=== PATIENT | male | born 1990 | race American Indian/Alaskan Native ===

== ENCOUNTER 2021-02-13 10:12 | Emergency (ER) | payer OTHER ==
[2021-02-13 11:05] VITALS: BP 161/117
--- NOTE | 2021-02-13 13:35 | Emergency Department Report ---
ED Male HPI - General Chief complaint: Urogenital-Male Stated complaint: GROIN PAIN Time Seen by Provider: 02/13/21 11:14 Source: patient Mode of arrival: Ambulatory Limitations: No Limitations - History of Present Illness Initial comments: This is a 30-year-old male with a history of HIV not on medication recently moved here looking for an infectious disease doctor presents ED complaining of penile lesions for about a year and 9 yellowish discharge most not resolving with antifungal cream. Patient states that he is not sexually active so is not worried about a STD. Patient states he is uncircumcised and has a lot of pus drainage from around the penis head. And red burning type lesions all around the penis going down his testicles. Patient denies any testicular pain, injury, swelling, trauma. He denies fever/chills/nausea vomiting. MD Complaint: penile discharge - Related Data Previous Rx's Medication Instructions Recorded Last Taken Type Acyclovir [Zovirax Tab] 800 mg PO Q8H #21 tab 02/13/21 Unknown Rx Acyclovir [Zovirax] 1 applic TP TID #1 oint...g. 02/13/21 Unknown Rx Clindamycin [Clindamycin CAP] 300 mg PO Q8H #15 cap 02/13/21 Unknown Rx Hydrocortisone 1% [Hydrocortisone 1 applicatio TP TID #1 tube 02/13/21 Unknown Rx 1% CREAM] Ibuprofen [Motrin 800 MG tab] 800 mg PO Q8HR PRN #30 tablet 02/13/21 Unknown Rx Allergies Allergy/AdvReac Type Severity Reaction Status Date / Time shellfish derived Allergy Vomiting Verified 02/13/21 11:03 ED Review of Systems ROS: Stated complaint: GROIN PAIN Other details as noted in HPI Comment: All other systems reviewed and negative ED Past Medical Hx - Past Medical History Previous Medical History?: No Hx Hypertension: Yes - Surgical History Past Surgical History?: No - Social History Smoking Status: Never Smoker Substance Use Type: None - Medications Home Medications: Home Medications Medication Instructions Recorded Confirmed Last Taken Type Acyclovir [Zovirax Tab] 800 mg PO Q8H #21 tab 02/13/21 Unknown Rx Acyclovir [Zovirax] 1 applic TP TID #1 oint...g. 02/13/21 Unknown Rx Clindamycin [Clindamycin CAP] 300 mg PO Q8H #15 cap 02/13/21 Unknown Rx Hydrocortisone 1% [Hydrocortisone 1 applicatio TP TID #1 tube 02/13/21 Unknown Rx 1% CREAM] Ibuprofen [Motrin 800 MG tab] 800 mg PO Q8HR PRN #30 tablet 02/13/21 Unknown Rx ED Physical Exam - General Limitations: No Limitations General appearance: alert, in no apparent distress - Head Head exam: Present: atraumatic - exam: Present: urethral discharge, other (Herpetic lesions noted all over testicles and penis.). Absent: testicular tenderness, circumcision External exam: Present: erythema, lesions. Absent: swelling, lacerations, bleeding - Extremities Exam Extremities exam: Present: normal inspection, full ROM ED Course Vital Signs 02/13/21 11:04 Temperature 98.7 F Pulse Rate 75 Respiratory 18 Rate Blood Pressure 161/117 O2 Sat by Pulse 100 Oximetry ED Medical Decision Making - Medical Decision Making 30-year-old male presents with lesions consistent with herpes genitalia. Discussed infective herpes lesions. Discussed antibiotic therapy along with antiviral. Discussed topical antiviral as well. Discussed follow-up with the primary care physician/infectious disease to continue management for HIV. Patient was in no acute distress throughout ED stay. Critical care attestation.: If time is entered above; I have spent that time in minutes in the direct care of this critically ill patient, excluding procedure time. 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 Take all your medications as you've been prescribed. If you have any worsening symptoms or develop new symptoms please return to ED immediately. Prescriptions: Clindamycin [Clindamycin CAP] 300 mg PO Q8H #15 cap Hydrocortisone 1% [Hydrocortisone 1% CREAM] 1 applicatio TP TID #1 tube Ibuprofen [Motrin 800 MG tab] 800 mg PO Q8HR PRN #30 tablet PRN Reason: Pain Acyclovir [Zovirax] 1 applic TP TID #1 oint...g. Acyclovir [Zovirax Tab] 800 mg PO Q8H #21 tab Referrals: PRIMARY CARE, [Primary Care Provider] - 3-[address] [facility] [Outside] - 3-5 Days [facility] [Outside] - 3-5 Days [facility] [Outside] - 3-5 Days MELL GRIFFIN MD [Staff Physician] - 3-5 Days Forms: Accompanied Note, Work/School Release Form(ED) Time of Disposition: 13:42
== END 2021-02-13 13:50 | disposition home or self-care (01) ==
LOC: ED 10:12
DX: A60.02 Herpesviral infection of other male genital organs (principal); I10 Essential (primary) hypertension; Z79.899 Other long term (current) drug therapy; Z91.013 Allergy to seafood
CPT/HCPCS: 99282